=== PATIENT | male | born 1985 | race Native Hawaiian/Other Pacific Islander ===

== ENCOUNTER 2017-05-03 14:16 | Inpatient (IN) | payer OTHER ==
[~2017-05-03] VITALS: Ht 167.6 cm; Wt 70.6 kg
[2017-05-03] VITALS (7 sets, daily range): BP systolic 114–126; BP diastolic 70–88; TEMP 97.6–98.6; Ht 167.6 cm; Wt 70.6 kg
[2017-05-03 15:22] LABS: PLATELET COUNT 525 K/uL (142-355)
[2017-05-03 15:32] LABS: SODIUM 144 mmol/L (136-145)
--- NOTE | 2017-05-03 19:00 | NUR ---
PATIENT RECEIVED FROM ER VIA WC. ALERT AND ORIENTED X 3. PATIENT GIVEN EDUCATON REGARDING BED CONTROLS AND CALL LIGHT. INSTRUCTED TO KEEP BED IN LOW POSITION. 22G SALINE LOCK TO RAC INTACT AND PATENT. FAMILY IS AT BEDSIDE.
[2017-05-04] VITALS: BP 91/35; TEMP 98.1
[2017-05-04 04:00] VITALS: BP 113/64; TEMP 98.7
[2017-05-04 05:45] LABS: PLATELET COUNT 416 K/uL (142-355)
[2017-05-04 06:06] LABS: POTASSIUM 3.6 mmol/L (3.6-5.2); SODIUM 140 mmol/L (136-145)
[2017-05-04 08:00] VITALS: BP 124/76; TEMP 98.3
[2017-05-04 11:51] VITALS: BP 109/63; TEMP 98.9
[2017-05-04 16:00] VITALS: BP 117/79; TEMP 98.1
--- NOTE | 2017-05-04 17:15 | NUR ---
IV D/C'd. NO REDNESS OR EDEMA. Pt. EXIT OUT OF FRONT ENTRANCE AMBULATING.
== END 2017-05-04 17:15 | disposition home or self-care (01) | DRG 896 ==
LOC: ED 14:16 → MED/SURG 17:27
DX: F10.229 Alcohol dependence with intoxication, unspecified (principal); K85.20 Alcohol induced acute pancreatitis without necrosis or infection; F10.239 Alcohol dependence with withdrawal, unspecified; F15.10 Other stimulant abuse, uncomplicated; Y90.8 Blood alcohol level of 240 mg/100 ml or more
CPT/HCPCS: 36415; 80053; 80307; 80320; 80329; 81000; 82150; 82550; 83690; 83735; 84484; 85027; 93005; 96360; 96361; 96366; 96367; 96374; 96375; 96376; 99284; G0479; J2060; J2175; J2405; J2765; J3411; J3475; J3490

== ENCOUNTER 2018-09-29 00:35 | Emergency (ER) | payer OTHER ==
[~2018-09-29] VITALS: Ht 167.6 cm; Wt 68.0 kg
[2018-09-29 00:45] VITALS: BP 137/86
[2018-09-29 01:33] LABS: PLATELET COUNT 364 K/uL (142-355)
[2018-09-29 01:44] LABS: POTASSIUM 3.8 mmol/L (3.6-5.2); SODIUM 144 mmol/L (136-145)
== END 2018-09-29 03:25 | disposition home or self-care (01) ==
LOC: ED 00:35
PROVIDERS: Emergency Medicine
DX: F10.10 Alcohol abuse, uncomplicated (principal); R00.0 Tachycardia, unspecified
CPT/HCPCS: 36415; 80053; 80307; 80320; 80329; 81000; 82550; 84484; 85027; 93005; 99285

== ENCOUNTER 2018-10-17 00:38 | Emergency (ER) | payer OTHER ==
[~2018-10-17] VITALS: Ht 167.6 cm; Wt 68.0 kg
[2018-10-17 01:13] LABS: PLATELET COUNT 388 K/uL (142-355)
[2018-10-17 01:23] LABS: POTASSIUM 3.8 mmol/L (3.6-5.2)
[2018-10-17 01:48] VITALS: BP 107/70; TEMP 98
== END 2018-10-17 01:54 | disposition home or self-care (01) ==
LOC: ED 00:38
PROVIDERS: Internal Medicine
DX: R10.13 Epigastric pain (principal); F10.10 Alcohol abuse, uncomplicated
CPT/HCPCS: 36415; 80053; 82150; 83690; 85027; 96372; 99283; J1885; J2405

== ENCOUNTER 2018-11-22 22:57 | Emergency (ER) | payer OTHER ==
[~2018-11-22] VITALS: Ht 167.6 cm; Wt 68.0 kg
[2018-11-23 00:29] LABS: PLATELET COUNT 300 K/uL (142-355)
[2018-11-23 00:31] LABS: POTASSIUM 3.8 mmol/L (3.6-5.2)
[2018-11-24] VITALS: BP 125/79; TEMP 98.2
== END 2018-11-24 | disposition home or self-care (01) ==
LOC: ED 22:57
PROVIDERS: Internal Medicine
DX: F10.129 Alcohol abuse with intoxication, unspecified (principal)
CPT/HCPCS: 80053; 80307; 80320; 80329; 81000; 85027; 93005; 96360; 96361; 99285; J2405; J3411; J3475; J3490

== ENCOUNTER 2020-02-28 20:24 | Emergency (ER) | payer OTHER ==
[~2020-02-28] VITALS: Ht 167.6 cm; Wt 59.4 kg
[2020-02-28 23:25] LABS: PLATELET COUNT 183 K/uL (142-355); POTASSIUM 4.3 mmol/L (3.6-5.2)
[2020-03-01 16:00] VITALS: TEMP 98.4
[2020-03-01 18:30] VITALS: BP 125/68
== END 2020-03-01 18:30 | disposition still patient (30) ==
LOC: ED 20:24
PROVIDERS: Family Medicine
DX: R45.851 Suicidal ideations (principal); F10.20 Alcohol dependence, uncomplicated
CPT/HCPCS: 36415; 80053; 80307; 80320; 80329; 81000; 85027; 96365; 96375; 99285; J1200; J1630; J2060; J2405; J3411; J3475; J3490

== ENCOUNTER 2020-03-12 00:42 | Emergency (ER) | payer OTHER ==
[~2020-03-12] VITALS: Ht 167.6 cm; Wt 59.4 kg
[2020-03-12 01:38] LABS: PLATELET COUNT 554 K/uL (142-355)
[2020-03-12 02:12] VITALS: BP 146/83; TEMP 98.3
== END 2020-03-12 02:12 | disposition home or self-care (01) ==
LOC: ED 00:42
PROVIDERS: Emergency Medicine
PROC: 0T9B70Z Drainage of Bladder with Drainage Device, Via Natural or Artificial Opening (ICD-10-PCS; principal; 2020-03-12)
DX: F10.20 Alcohol dependence, uncomplicated (principal)
CPT/HCPCS: 51702; 80053; 80307; 80320; 81000; 85027; 93005; 96365; 99284; J3411; J3475; J3490

== ENCOUNTER 2020-03-12 02:39 | Emergency (ER) | payer OTHER ==
[~2020-03-12] VITALS: Ht 167.6 cm; Wt 59.4 kg
[2020-03-13 07:23] VITALS: BP 122/72; TEMP 98
== END 2020-03-13 08:29 | disposition other institution (70) ==
LOC: ED 02:39
DX: F10.20 Alcohol dependence, uncomplicated (principal); R45.851 Suicidal ideations
CPT/HCPCS: 36415; 80320; 82550; 82553; 84484; 93005; 96375; 96376; 99285; J2060; J2405

== ENCOUNTER 2020-08-30 23:20 | Emergency (ER) | payer OTHER ==
[~2020-08-30] VITALS: Ht 167.6 cm; Wt 68.0 kg
[2020-08-30 23:50] VITALS: BP 104/48; TEMP 98.2
== END 2020-08-31 00:33 | disposition home or self-care (01) ==
LOC: ED 23:20
DX: F11.20 Opioid dependence, uncomplicated (principal)
CPT/HCPCS: 80307; 81000; 99285